=== PATIENT | male | born 1980 ===

== ENCOUNTER 2023-08-29 08:04 | Outpatient (REF) | payer OTHER, SELFPAY | END 2023-08-29 08:05 | disposition home or self-care (01) | LOC: HO.UMASIMG 08:04 | PROVIDERS: Visit Provider Family Medicine | DX: Z13.89 Encounter for screening for other disorder (principal) ==

== ENCOUNTER 2023-09-03 10:00 | Outpatient (REF) | payer OTHER, SELFPAY ==
--- NOTE | ~2023-09-03 | US_ITS ---
EXAMINATION: US ABDOMEN COMPLETE CLINICAL INFORMATION: Elevated LFTs. COMPARISON: None available. TECHNIQUE: Real-imaging of the abdominal viscera. FINDINGS: PANCREAS: Limited. The visualized pancreatic head and body are normal in appearance. The remainder of the pancreas is obscured from visualization by the overlying bowel gas. ABDOMINAL AORTA: The proximal and mid segments are nonaneurysmal. The distal segment is obscured by overlapping bowel gas. INFERIOR VENA CAVA: Visualized portions are normal. LIVER: There is hepatomegaly, with a longitudinal span of 18.2 cm. The liver contour is normal. There is diffuse increased liver parenchymal echogenicity. No focal hepatic lesion. There is no intrahepatic biliary duct dilatation seen. The portal vein is patent, with hepatopedal flow. GALLBLADDER: The gallbladder is physiologically distended. Multiple mobile gallstones are present. No evidence of gallbladder wall thickening or pericholecystic fluid. COMMON BILE DUCT: Normal in caliber measuring 0.3 cm in diameter. RIGHT KIDNEY: Normal. No hydronephrosis. No renal calculi or focal parenchymal lesions. The kidney measures 10.8 cm in maximum dimension. LEFT KIDNEY: Normal. No hydronephrosis. No renal calculi or focal parenchymal lesions. The kidney measures 9.9 cm in maximum dimension. SPLEEN: Normal. The spleen measures 8.9 cm in maximum dimension. FREE FLUID: None. US/US abdomen complete IMPRESSION: 1. There is mild hepatomegaly. 2. There is generalized increase in hepatic echotexture, consistent with fatty infiltration or hepatocellular disease. Please correlate clinically. No focal hepatic mass or intrahepatic biliary dilatation is seen. 3. There is cholelithiasis. 4. Technically limited ultrasound examination of the pancreas and abdominal great vessels.
== END 2023-09-03 10:01 | disposition home or self-care (01) ==
LOC: HO.UMASIMG 10:00
PROVIDERS: Visit Provider Family Medicine
DX: R74.01 Elevation of levels of liver transaminase levels (principal); F33.9 Major depressive disorder, recurrent, unspecified; E11.9 Type 2 diabetes mellitus without complications; F64.9 Gender identity disorder, unspecified; I10 Essential (primary) hypertension
CPT/HCPCS: 76700

== ENCOUNTER → 2025-01-13 08:30 | Outpatient (BNV) | payer OTHER, SELFPAY | PROVIDERS: Visit Provider Radiology Diagnostic Radiology | DX: K76.0 Fatty (change of) liver, not elsewhere classified (principal); K80.20 Calculus of gallbladder without cholecystitis without obstruction | CPT/HCPCS: 76700 ==

== ENCOUNTER 2025-01-13 08:36 | Outpatient (REF) | payer OTHER, SELFPAY ==
--- NOTE | ~2025-01-13 | US_ITS ---
CLINICAL HISTORY: FATTY LIVER US abdomen complete Comparison: US/SR - US ABDOMEN - 09/03/23 14:27 EDT Findings: The visualized pancreas is normal, pancreatic tail is obscured by bowel gas. The visualized aorta and inferior vena cava are normal caliber. The liver is enlarged, right lobe length is 18.1 cm, stable. Stable echogenic liver parenchyma, no suspicious lesion is seen. No intrahepatic bile duct dilatation. The common duct is 2 mm in diameter. Physiologic distention of the gallbladder, multiple shadowing stones, no gallbladder wall thickening, negative sonographic Owusu's sign. The main portal vein is patent with antegrade flow. The right kidney is normal, 11.2 cm in length. The left kidney is normal, 10.4 cm in length. The spleen is normal, 9.1 cm in length. No free fluid in the abdomen. Impression: 1. Stable mild hepatomegaly with diffusely echogenic liver parenchyma, non-specific, commonly seen in the setting of steatosis or chronic hepatitis. 2. Cholelithiasis, no acute inflammation. This document has been electronically signed by: Sandra Pham MD on 01/13/2025 12:28:34
--- OUTSIDE RECORDS SUMMARY | 2025-01-13 08:52 | XMS_ITS | Clinical Summary ---
Author Organization [facility] Address [address] [facility] [address] [place] [address] Phone Care Team Providers Care Pad Tufter Name Role Phone Duran Roche DNP Primary Care Prov ider Allergies Active Allergy Reactions Criticality Noted Date Comments Sulfamethoxazole-Trimethoprim 2020 Lisinopril Rash Low 01/24/2021 Medications hydroCHLOROthia zide 25 MG tablet Take 25 mg by mouth daily Active Solriamfetol HCl 150 MG tablet Take 150 mg by mouth every morning Active hydroxychloroqu ine (PLAQUENIL) 200 MG tablet Take 200 mg by mouth twice a day Active propranolol (INDERAL) 10 MG tablet Take 10 mg by mouth if needed Active cycloSPORINE (RESTASIS) 0.05 % ophthalmic emulsion 1 drop 2 (two) times a day Active fluticasone (FLONASE) 50 MCG/ACT nasal spray Administer 1 spray into each nostril 1 (one) time each day Active sodium chloride 0.9 % nebulizer solution with albuterol (5 MG/ML) 0.5% nebulizer solution 0.6 mg/mL Take 0.5 mg/kg/hr by nebulization continuously Active budesonide (RHINOCORT AQ) 32 MCG/ACT nasal spray Administer 1 spray into each nostril if needed Active beclomethasone (QVAR) 80 MCG/ACT inhaler Inhale 1 puff if needed Rinse mouth with water after use to reduce aftertaste and incidence of candidiasis. Do not swallow. Active ipratropium (ATROVENT) 0.02 % nebulizer solution Take 500 mcg by nebulization if needed Active testosterone cypionate (DEPO-TESTOTERO NE) 200 MG/ML injection per week 1 Active ergocalciferol 1.25 MG (83236 UT) capsule every 30 (thirty) days 1 Active FLUoxetine (PROzac) 60 MG tablet Take 60 mg by mouth 1 (one) time each day 1 Active amLODIPine (NORVASC) 2.5 MG tablet Take 1 tablet (2.5 mg total) by mouth 1 (one) time each day 90 tablet 3 1 Active Active Problems Problem Noted Date Diagnosed Date Essential (primary) hypertension 03/31/2021 Prediabetes 03/31/2021 Resolved Problems Problem Noted Date Diagnosed Date Resolved Date Hypertension 03/31/2021 03/31/2021 Subacute cutaneous lupus erythematosus 03/31/2021 04/03/2021 Family History Medical History Relation Comments Diabetes Maternal Grandfather Heart disease Maternal Grandfather Hyperlipidemia Maternal Grandfather Hypertension Maternal Grandfather Mental illness Maternal Grandmother Cancer Mother Diabetes Mother's Brother Heart disease Mother's Brother Hyperlipidemia Mother's Brother Hypertension Mother's Brother Diabetes Mother's Sister Mental illness Sister Relation Status Comments Maternal Grandfather Maternal Grandmother Mother Mother's Brother Mother's Sister Sister Social History Tobacco Use Types Packs/Day Years Used Date Smoking Tobacco: Never Smokeless Tobacco: Never Alcohol Use Standard Drinks/Week Comments Not Currently 0 (1 standard drink = 0.6 oz pur e alcohol) Sex and Gender Information Value Date Recorded Sex Assigned at Not on file Legal Sex Male 11:15 AM EDT Gender Identity Not on file Sexual Orientation Not on file Last Filed Vital Signs Vital Sign Reading Time Taken Comments Blood Pressure 130/88 04/04/2021 8:16 AM EDT Pulse 77 04/04/2021 8:16 AM EDT Temperature - - Respiratory Rate - - Oxygen Saturation 98% 04/04/2021 8:16 AM EDT Inhaled Oxygen Concentration - - Weight 77.1 kg (170 lb) 04/04/2021 8:16 AM EDT Height 154.9 cm (5' 1 ) 04/04/2021 8:16 AM EDT Body Mass Index 32.12 04/04/2021 8:16 AM EDT Plan of Treatment Health Maintenance Due Date Last Done Comments Hepatitis B Vaccine (1 of 3 - 19+ 3-dose series) 1997 Influenza Vaccine (#1) 2025 Pneumococcal Vaccine: Peds ( 0 to 5 Years) and At-Risk Patients (6 to 49 Years) Aged Out No longer eligible b ased on patient's age to complete this topic Insurance Unicare Unicare Care Teams Pad Tufter Relationship Specialty Start Date End Date Duran Roche DNP [address] [place] [address] [place] [address] PCP - General Nurse Practitioner 04/03/21
--- OUTSIDE RECORDS SUMMARY | 2025-01-13 08:52 | XMS_ITS | Encounter Summary ---
Author Organization [facility] Address [address] [facility] [address] [place] [address] Phone Care Team Providers Care Tutoring Assistant Name Role Phone Palmira Allen DO Unavailable [phone] Palmira Allen DO Primary Care Provider + Encounter Details Date Type Department Care Team (Late st Contact Info) Description 12/15/2024 Telephone [facility] [address] [place] [address] [address] Floor, [address] [place] [address] Pool Norman MD, [place] [address], [address] [place] [address] [email or web address] Social History Tobacco Use Types Packs/Day Years Used Date Smoking Tobacco: Never Smokeless Tobacco: Never Alcohol Use Standard Drinks/Week Comments No 0 (1 standard drink = 0.6 oz pur e alcohol) Education Answer Date Recorded Are you interested in more education? Not on simran e 10/07/2022 Are you concerned about learning? Not on file 10/07/2022 No 10/07/2022 No 10/07/2022 Digital Access Answer Date Recorded No 10/28/2022 No 10/28/2022 Reliable internet access at home? Not on file 10/28/2022 Device with a working camera? Not on file Intimate Partner Violence Answer Date R ecorded Are you denied basic needs s uch as food, clothing, or medical care? No 08/08/2024 In the past 12 months have y ou been in a relationship with a person who hurts, threatens, or tries to control you? No 08/08/2024 Are you denied basic needs s uch as food, clothing, or medical care? No 08/08/2024 In the past 12 months have y ou been in a relationship with a person who hurts, threatens, or tries to control you? No 08/08/2024 Comments No Sex and Gender Information Value Date Recorded Sex Assigned at Female 01/24/2019 11:46 AM EDT Legal Sex Male 6:38 PM EST Gender Identity Male 01/19/2018 10:50 AM EDT Sexual Orientation Not on file documented as of this encounter Progress Notes * Marcela Goncalves - 12/15/2024 1:25 PM EDT Pt just got new cpap machine and the setting are supposed to go from 4-20 but its not going past 4 so he had to revert back to using his old machine. He's going to touch base with the DME as well. Healso mentioned that he would like to go with a nasal mask and if we could put in a script for him to change to that. documented in this encounter Plan of Treatment Upcoming Encounters Date Type Department Care Team (Late st Contact Info) Description 11/29/2025 9:00 AM EDT Office Visit [facility] [address] [place] [address] [address] Floor, [address] [place] [id number] Pool Norman MD, [place] [address] [place] [address], [address] [address] [email or web address] documented as of this encounter Visit Diagnoses Not on filedocumented in this encounter Care Teams Tutoring Assistant Relationship Specialty Start Date End Date Palmira Allen DO [address] [place] [id number] [email or web address] PCP - General Family Medicine 06/16/21 Palmira Allen DO [address] [place] [id number] [email or web address] Family Medicine 06/13/21 documented as of this encounter Additional Source Comments The information contained in this document represents components of the legal health record. It is not the complete legal health record.[facility]
== END 2025-01-13 08:37 | disposition home or self-care (01) ==
LOC: HO.UMASIMG 08:36
PROVIDERS: Visit Provider Family Medicine
DX: K76.0 Fatty (change of) liver, not elsewhere classified (principal)
CPT/HCPCS: 76700